=== PATIENT | male | born 1970 | race Caucasian/White ===

== ENCOUNTER 2022-12-21 17:37 | Emergency (ER) | payer OTHER, SELFPAY ==
[2022-12-21 17:51] VITALS: BP 127/91; PULSE 100; RESP 16; TEMP 36.5; O2SAT 96; BMI 43.2
[2022-12-21] MEDS: ONDANSETRON 4 MG/2 ML INJ IV (19:07)
[2022-12-21 19:16] LABS: Add Manual Diff / Slide Review NO; Basophils Absolute Auto 100 /uL (0-100); Basophils Percent Auto 0.5 % (0-2); Eosinophils Absolute Auto 300 /uL (0-450); Eosinophils Percent Auto 2.3 % (2-4); Hemoglobin 14.9 g/dL (13.5-17.5); Lymphocytes Absolute Auto 1800 /uL (1100-4500); Lymphocytes Percent Auto 16.6 % (25-40); Mean Corpuscular Hemoglobin 28.7 PG (26-34); Mean Corpuscular Volume 84.7 fL (80-100); Monocytes Absolute Auto 800 /uL (0-900); Monocytes Percent Auto 7.1 % (3-14); Neutrophils Absolute Auto 8100 /uL (1500-7000); Neutrophils Percent Auto 73.5 % (50-75); Platelet Count 343 X10^3/uL (150-400); Red Cell Distribution Width 14.1 % (11.6-14.8); White Blood Cell Count 11.1 X10^3/uL (4.5-11.0)
[2022-12-21 19:35] LABS: Ictotest Urine Negative (Negative)
[2022-12-21 19:35] LABS: Alanine Aminotransferase 54 IU/L (<50); Albumin 4.9 g/dL (3.5-5.0); Albumin Globulin Ratio 1.3 (1.0-2.8); Alkaline Phosphatase 88 U/L (38-126); Aspartate Aminotransferase 63 IU/L (17-59); BUN Creatinine Ratio 19.8 (6-22); Bilirubin Total 0.5 mg/dL (0.2-1.3); Blood Urea Nitrogen 20 mg/dL (9-20); Calcium 9.7 mg/dL (8.4-10.2); Carbon Dioxide 25 mmol/L (22-32); Chloride 105 mmol/L (98-107); Estimated Glomerular Filt Rate > 60 mL/min (>60); Globulin 3.7 g/dL (1.7-4.1); Glucose 97 mg/dL (70-100); HEMOLYSIS < 15 (0-50); Lipase 171 U/L (23-300); Potassium 4.4 mmol/L (3.4-5.1); Sodium 141 mmol/L (137-145); Total Protein 8.6 g/dL (6.3-8.2)
[2022-12-21 19:42] LABS: Bacteria Urine None Seen; RBC Urine 0-1/HPF (0-5/HPF); Squamous Epithelial Cell Urine None Seen (0-5/HPF); WBC Urine 0-1/HPF (0-5/HPF)
[2022-12-21] MEDS: METOCLOPRAMIDE 10 MG/2 ML INJ IV (21:02)
--- NOTE | 2022-12-21 21:14 | DI.RAD.S_ITS ---
PROCEDURE: XR ABDOMEN 1V INDICATIONS: abdominal pain TECHNIQUE: One view of the abdomen acquired. COMPARISON: None. FINDINGS: Surgical changes and devices: There are surgical clips in the right upper quadrant. Bowel: Bowel gas pattern demonstrates multiple scattered air-fluid levels throughout the abdomen without abnormal gaseous bowel distention. There is a paucity of gas in the colon. Soft tissues: No suspicious abdominal calcifications. Bones: No suspicious bony lesions. IMPRESSION: 1. Scattered air-fluid levels without abnormal gaseous bowel distention. The findings are nonspecific and the differential includes a gastroenteritis, ileus, or bowel obstruction. Dictated by: Naveen Boston M.D. on 12/21/2022 at 21:55 Approved by: Naveen Boston M.D. on 12/21/2022 at 21:57
--- NOTE | 2022-12-21 21:14 | ED_ITS ---
HPI - General Adult General Chief complaint: Abdominal Pain Stated complaint: abd. pain Time Seen by Provider: 12/21/22 20:55 Source: patient Mode of arrival: Ambulatory Limitations: no limitations History of Present Illness HPI narrative: Patient is a 52-year-old male here for evaluation of abdominal pain, diarrhea, distention and nausea. He states he has had symptoms like this in the past that have lasted for short period of time and then resolved. He denies any urinary symptoms. No fevers. Has had a colonoscopy recently where he stated that there was no specific abnormal findings. Also had an upper endoscopy we states there was some irritation of the distal esophagus and in his stomach. No fevers. No recent travel. He was recently on Ozempic for weight control. 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 Related Data Allergies Allergy/AdvReac Type Severity Reaction Status Date / Time No Known Drug Allergies Allergy Verified 12/21/22 19:07 Review of Systems Constitutional Constitutional: Reports system reviewed and no additional complaints, except as documented Cardiovascular Cardiovascular: Reports system reviewed and no additional complaints, except as documented Respiratory Respiratory: Reports system reviewed and no additional complaints, except as documented Gastrointestinal Gastrointestinal: Reports system reviewed and no additional complaints, except as documented Genitourinary Genitourinary: Reports system reviewed and no additional complaints, except as documented Integumentary/Breasts Skin/Breast: Reports system reviewed and no additional complaints, except as documented Exam Initial Vital Signs Initial Vital Signs: Vital Signs Temperature 97.7 F 12/21/22 17:51 Pulse Rate 100 H 12/21/22 17:51 Respiratory Rate 16 12/21/22 17:51 Blood Pressure 127/91 H 12/21/22 17:51 Pulse Oximetry 96 12/21/22 17:51 Oxygen Delivery Method Room Air 12/21/22 17:51 Const General: cooperative, comfortable and No ill appearing [facility] Head: normal to inspection and normocephalic Resp Effort & Inspection: normal respiratory effort Auscultation: clear to auscultation bilaterally Cardio Rate: regular rate GI Inspection: distended Palpation: firm, No guarding, No rigid and tender Skin General: no rashes or lesions noted Neuro General: patient alert, patient awake and moves all extremities Course Orders Ordered: ED Orders 12/21/22 19:07 Complete Blood Count AUTO DIFF Stat Comprehensive Metabolic Panel Stat Lipase Stat 12/21/22 19:10 Ictotest Urine Stat Urine Culture Stat Urine Microscopic Stat 12/21/22 21:14 XR abdomen 1V Stat 12/21/22 22:03 CT abdomen pelvis wo con Stat Discontinued Medications Metoclopramide HCl (Metoclopramide 10 Mg/2 Ml Inj) 10 mg IV NOW ONE Stop: 12/21/22 20:56 Last Admin: 12/21/22 21:02 Dose: 10 mg Documented By: RL Ondansetron HCl (Ondansetron 4 Mg Odt) 4 mg PO NOW PRN PRN Reason: Nausea And Vomiting Ondansetron HCl (Ondansetron 4 Mg/2 Ml Inj) 4 mg IV NOW PRN PRN Reason: Nausea And Vomiting Last Admin: 12/21/22 19:07 Dose: 4 mg Documented By: AMU Vital Signs Vital signs: Vital Signs - 8 hr 12/21/22 23:19 Pulse Rate 95 H Blood Pressure 133/83 Pulse Oximetry 96 Oxygen Delivery Method Room Air Medical Decision Making Lab Data Lab results reviewed: Yes I reviewed the patient's lab results. 12/21/22 19:07 12/21/22 19:07 Labs: Lab Results 12/21/22 12/21/22 12/21/22 Range/Units 19:07 19:07 19:10 WBC 11.1 H (4.5-11.0) X10^3/uL RBC 5.20 (4.5-5.9) X10^6/uL Hgb 14.9 (13.5-17.5) g/dL Hct 44.0 (41-53) % MCV 84.7 (80-100) fL MCH 28.7 (26-34) PG MCHC 34.0 (30-36) % RDW 14.1 (11.6-14.8) % Plt Count 343 (150-400) X10^3/uL Neut % (Auto) 73.5 (50-75) % Lymph % (Auto) 16.6 L (25-40) % [place] % (Auto) 7.1 (3-14) % Eos % (Auto) 2.3 (2-4) % Baso % (Auto) 0.5 (0-2) % Neut # (Auto) 8100 H (0040-6304) /uL Lymph # (Auto) 1800 (2699-5969) /uL [place] # (Auto) 800 (0-900) /uL Eos # (Auto) 300 (0-450) /uL Baso # (Auto) 100 (0-100) /uL Sodium 141 (137-145) mmol/L Potassium 4.4 (3.4-5.1) mmol/L Chloride 105 (98-107) mmol/L Carbon Dioxide 25 (22-32) mmol/L BUN 20 (9-20) mg/dL Creatinine 1.01 (0.66-1.25) mg/dL Estimated GFR > 60 (>60) mL/min BUN/Creatinine Ratio 19.8 (6-22) Glucose 97 (70-100) mg/dL Calcium 9.7 (8.4-10.2) mg/dL Total Bilirubin 0.5 (0.2-1.3) mg/dL AST 63 H (17-59) IU/L ALT 54 H (<50) IU/L Alkaline Phosphatase 88 (38-126) U/L Total Protein 8.6 H (6.3-8.2) g/dL Albumin 4.9 (3.5-5.0) g/dL Globulin 3.7 (1.7-4.1) g/dL Albumin/Globulin Ratio 1.3 (1.0-2.8) Lipase 171 (23-300) U/L Ur Bilirubin Confirm (Negative) Urine RBC 0-1/hpf (0-5/HPF) Urine WBC 0-1/hpf (0-5/HPF) Ur Squamous Epith Cells None seen (0-5/HPF) Urine Bacteria None seen (None) 12/21/22 Range/Units 19:10 WBC (4.5-11.0) X10^3/uL RBC (4.5-5.9) X10^6/uL Hgb (13.5-17.5) g/dL Hct (41-53) % MCV (80-100) fL MCH (26-34) PG MCHC (30-36) % RDW (11.6-14.8) % Plt Count (150-400) X10^3/uL Neut % (Auto) (50-75) % Lymph % (Auto) (25-40) % [place] % (Auto) (3-14) % Eos % (Auto) (2-4) % Baso % (Auto) (0-2) % Neut # (Auto) (8437-4198) /uL Lymph # (Auto) (2063-3255) /uL [place] # (Auto) (0-900) /uL Eos # (Auto) (0-450) /uL Baso # (Auto) (0-100) /uL Sodium (137-145) mmol/L Potassium (3.4-5.1) mmol/L Chloride (98-107) mmol/L Carbon Dioxide (22-32) mmol/L BUN (9-20) mg/dL Creatinine (0.66-1.25) mg/dL Estimated GFR (>60) mL/min BUN/Creatinine Ratio (6-22) Glucose (70-100) mg/dL Calcium (8.4-10.2) mg/dL Total Bilirubin (0.2-1.3) mg/dL AST (17-59) IU/L ALT (<50) IU/L Alkaline Phosphatase (38-126) U/L Total Protein (6.3-8.2) g/dL Albumin (3.5-5.0) g/dL Globulin (1.7-4.1) g/dL Albumin/Globulin Ratio (1.0-2.8) Lipase (23-300) U/L Ur Bilirubin Confirm Negative (Negative) Urine RBC (0-5/HPF) Urine WBC (0-5/HPF) Ur Squamous Epith Cells (0-5/HPF) Urine Bacteria (None) Urine Dip Bedside Urine Glucose Negative Bedside Urine Bilirubin + 1 Bedside Urine Ketone - Negative Urine Specific [place]row 1.030 Bedside Urine Occult Blood + Bedside Urine pH 5.5 Bedside Urine Protein - Negative Bedside Urine Urobilinogen - Negative Bedside Urine Nitrite - Negative Bedside Urine Leukocytes - Negative Esterase Point of care testing: Urine Dip Bedside Urine Glucose Negative Bedside Urine Bilirubin + 1 Bedside Urine Ketone - Negative Urine Specific Woodrow 1.030 Bedside Urine Occult Blood + Bedside Urine pH 5.5 Bedside Urine Protein - Negative Bedside Urine Urobilinogen - Negative Bedside Urine Nitrite - Negative Bedside Urine Leukocytes - Negative Esterase Imaging Data Abdominal x-ray: Radiologist's Impression: PROCEDURE:? XR ABDOMEN 1V ? INDICATIONS:? abdominal pain ? TECHNIQUE:? One view of the abdomen acquired.? ? COMPARISON:? None. ? FINDINGS:? ? Surgical changes and devices:? There are surgical clips in the right upper quadrant.? ? Bowel:? Bowel gas pattern demonstrates multiple scattered air-fluid levels throughout the abdomen without abnormal gaseous bowel distention.? There is a paucity of gas in the colon. ? Soft tissues:? No suspicious abdominal calcifications.? ? Bones:? No suspicious bony lesions.? ? IMPRESSION:? ? 1. Scattered air-fluid levels without abnormal gaseous bowel distention.? The findings are nonspecific and the differential includes a gastroenteritis, ileus, or bowel obstruction.? CT scan - abdomen/pelvis: Radiologist's Impression: PROCEDURE:? CT ABDOMEN PELVIS WO CON ? INDICATIONS:? Xray concerning for obstruction ? TECHNIQUE:? Axial sections were acquired from the lung bases to the pubic symphysis.? Coronal and sagittal reformats were performed.? For radiation dose reduction, the following was used: ?automated exposure control, adjustment of mA and/or kV according to patient size.? ? COMPARISON:? [facility], CR, XR ABDOMEN 1V, 12/21/2022, 21:22. ? FINDINGS:? Image quality:? Excellent.? ? Lung bases:? There is mild dependent atelectasis.? ? Heart:? Heart is normal in size. ? ? ABDOMEN: Liver:? Noncontrast evaluation of the liver demonstrates no discrete hepatic mass. Gallbladder:? Surgically absent.? Biliary ducts:? No biliary ductal dilatation.? ? Pancreas:? Unremarkable.? ? Spleen:? Normal in size.? ? Adrenal Glands:? No adrenal nodules.? ? Kidneys and Ureters:? No hydronephrosis.? ? ? Stomach and Bowel:? Stomach, small bowel loops, and colon are normal in caliber and wall thickness.? There are few scattered air-fluid levels within small and large bowel loops suggestive of a gastroenteritis.? No abnormal bowel distention to suggest obstruction.? There are surgical sutures along the cecum likely secondary to prior appendec mell.? Peritoneum:? No abnormal intraperitoneal fluid.? No free air.? ? Ventral Wall: ? No hernia.? Abdominal Nodes:? No retroperitoneal or mesenteric adenopathy by size criteria.? Vessels:? Aorta and inferior vena cava are normal in size.? ? PELVIS: Pelvic Organs:? Unremarkable.? ? Bladder:? Unremarkable.? ? Pelvic Nodes: No enlarged lymph nodes.? Miscellaneous: No inguinal hernias are seen. ? ? ? Bones:? Visualized osseous structures demonstrate no suspicious focal lesions. IMPRESSION:? ? 1. No evidence of bowel obstruction. ? 2. Scattered air-fluid levels within small and large bowel loops likely reflect a gastroenteritis.? MDM Narrative Medical decision making narrative: He did have a distended abdomen with diffuse tenderness. The x-ray showed air fluid levels with some concern about bowel obstruction. Resultant CT scan shows findings that are more consistent with a enteritis/colitis. This does fit with his picture today as he is also having diarrhea. No vomiting. No indication for antibiotics. No indication for surgical consultation. Will have him contact his primary doctor as he may need to get back in to see Gastroenterology. He was given return precautions. He expressed understanding and agreement. Discharge Plan Departure Patient Disposition: Home Clinical Impression: Gastroenteritis Instructions: Diarrhea Activity Restrictions/Additional Instructions: I do recommend that you eat a bland diet and advance it as tolerated. Contact your primary doctor for a follow-up. Return to the emergency department for new symptoms. Referrals: Chelsey Johnson MD [Primary Care Provider] - Stand Alone Forms: Patient Portal/API
--- NOTE | 2022-12-21 21:22 | PC.NURSE ---
pt ambulated with a steady gait to the restroom
--- NOTE | 2022-12-21 22:03 | DI.CT.S_ITS ---
PROCEDURE: CT ABDOMEN PELVIS WO CON INDICATIONS: Xray concerning for obstruction TECHNIQUE: Axial sections were acquired from the lung bases to the pubic symphysis. Coronal and sagittal reformats were performed. For radiation dose reduction, the following was used: automated exposure control, adjustment of mA and/or kV according to patient size. COMPARISON: [facility], , XR ABDOMEN 1V, 12/21/2022, 21:22. FINDINGS: Image quality: Excellent. Lung bases: There is mild dependent atelectasis. Heart: Heart is normal in size. ABDOMEN: Liver: Noncontrast evaluation of the liver demonstrates no discrete hepatic mass. Gallbladder: Surgically absent. Biliary ducts: No biliary ductal dilatation. Pancreas: Unremarkable. Spleen: Normal in size. Adrenal Glands: No adrenal nodules. Kidneys and Ureters: No hydronephrosis. Stomach and Bowel: Stomach, small bowel loops, and colon are normal in caliber and wall thickness. There are few scattered air-fluid levels within small and large bowel loops suggestive of a gastroenteritis. No abnormal bowel distention to suggest obstruction. There are surgical sutures along the cecum likely secondary to prior appendectomy. Peritoneum: No abnormal intraperitoneal fluid. No free air. Ventral Wall: No hernia. Abdominal Nodes: No retroperitoneal or mesenteric adenopathy by size criteria. Vessels: Aorta and inferior vena cava are normal in size. PELVIS: Pelvic Organs: Unremarkable. Bladder: Unremarkable. Pelvic Nodes: No enlarged lymph nodes. Miscellaneous: No inguinal hernias are seen. Bones: Visualized osseous structures demonstrate no suspicious focal lesions. IMPRESSION: 1. No evidence of bowel obstruction. 2. Scattered air-fluid levels within small and large bowel loops likely reflect a gastroenteritis. Dictated by: Naveen Boston M.D. on 12/21/2022 at 22:40 Approved by: Naveen Boston M.D. on 12/21/2022 at 22:58
[2022-12-21 23:19] VITALS: BP 133/83; PULSE 95; O2SAT 96
== END 2022-12-21 23:21 | disposition home or self-care (01) ==
PROVIDERS: Emergency Medicine; Emergency Provider Emergency Medicine; PCP Internal Medicine Endocrinology, Diabetes & Metabolism
DX: K52.9 Noninfective gastroenteritis and colitis, unspecified (principal)
CPT/HCPCS: 36415; 74018; 74176; 80053; 81003; 81015; 83690; 85025; 87086; 96374; 96375; 99284; J2405; J2765

== ENCOUNTER → 2024-04-13 09:05 | Outpatient (CLI) | payer OTHER, SELFPAY ==
[2024-04-13 10:27] LABS: Add Manual Diff / Slide Review NO; Basophils Absolute Auto 0 /uL (0-100); Basophils Percent Auto 0.5 % (0-2); Eosinophils Absolute Auto 100 /uL (0-450); Eosinophils Percent Auto 1.6 % (2-4); Hematocrit 42.9 % (41-53); Hemoglobin 14.4 g/dL (13.5-17.5); Lymphocytes Absolute Auto 1600 /uL (1100-4500); Lymphocytes Percent Auto 25.6 % (25-40); Mean Corpuscular HGB Conc 33.6 % (30-36); Mean Corpuscular Hemoglobin 29.2 PG (26-34); Mean Corpuscular Volume 86.8 fL (80-100); Monocytes Absolute Auto 600 /uL (0-900); Monocytes Percent Auto 9.7 % (3-14); Neutrophils Absolute Auto 4000 /uL (1500-7000); Neutrophils Percent Auto 62.6 % (50-75); Platelet Count 294 X10^3/uL (150-400); Red Blood Cell Count 4.94 X10^6/uL (4.5-5.9); Red Cell Distribution Width 14.2 % (11.6-14.8); White Blood Cell Count 6.3 X10^3/uL (4.5-11.0)
[2024-04-13 13:17] LABS: Alanine Aminotransferase 134 IU/L (<50); Albumin 4.6 g/dL (3.5-5.0); Albumin Globulin Ratio 1.8 (1.0-2.8); Alkaline Phosphatase 121 U/L (38-126); Aspartate Aminotransferase 60 IU/L (17-59); BUN Creatinine Ratio 22.8 (6-22); Bilirubin Total 0.5 mg/dL (0.2-1.3); Blood Urea Nitrogen 18 mg/dL (9-20); Calcium 9.4 mg/dL (8.4-10.2); Carbon Dioxide 21 mmol/L (22-32); Chloride 108 mmol/L (98-107); Cholesterol 320 mg/dL (140-199); Estimated Glomerular Filt Rate > 60 mL/min (>60); Globulin 2.5 g/dL (1.7-4.1); Glucose 109 mg/dL (70-100); HDL Cholesterol 40 mg/dL (40-60); HEMOLYSIS < 15 (0-50); Potassium 4.9 mmol/L (3.4-5.1); Sodium 140 mmol/L (137-145); Total Protein 7.1 g/dL (6.3-8.2); Triglycerides 421 mg/dL (35-150)
[2024-04-13 13:47] LABS: TSH w/ Reflex to FT4 1.63 uIU/mL (0.47-4.68)
[2024-04-13 13:53] LABS: Testosterone 149 ng/dL (71.8-623)
[2024-04-13 17:13] LABS: HIV 1 & 2 Ab/Ag 4th Gen Combo NEGATIVE (NEGATIVE)
[2024-04-13 19:49] LABS: Hep C Virus Ab w/Reflex Quant NEGATIVE s/c (NEGATIVE)
== END ==
PROVIDERS: PCP Family Medicine; Referring Provider Family Medicine; Visit Provider Family Medicine
DX: E66.01 Morbid (severe) obesity due to excess calories (principal); E03.9 Hypothyroidism, unspecified; E78.2 Mixed hyperlipidemia; R10.13 Epigastric pain; R53.82 Chronic fatigue, unspecified; E29.1 Testicular hypofunction
CPT/HCPCS: 36415; 80053; 80061; 83036; 84403; 84443; 85025; 86803; 87389

== ENCOUNTER → 2024-05-23 06:56 | Outpatient (CLI) | payer OTHER, SELFPAY ==
--- NOTE | 2024-05-23 06:57 | DI.US.S_ITS ---
PROCEDURE: US THYROID INDICATIONS: goiter TECHNIQUE: Real-time scanning was performed of the thyroid gland, with image documentation. COMPARISON: [facility], US, US THYROID, 08/15/2018, 14:36. FINDINGS: Thyroid: Right lobe measures 7.8 x 3.0 x 3.3 cm. Left lobe measures 6.3 x 2.9 x 2.6 cm. Isthmus is 0.3 cm thick. Echotexture is heterogeneous. Nodule number: 1 Location: Left mid inferior Size: 3.4 x 2.4 x 2.6 cm. Composition: Solid Echogenicity: Hypoechoic Shape: wider than tall. Margins: Smooth Echogenic foci: Punctate Total points: 7 ACR TI-RADS category: Highly suspicious Nodule number: 2 Location: Left superior Size: 1.5 x 0.9 x 1.6 cm. Composition: Solid Echogenicity: Hypoechoic Shape: wider than tall. Margins: Smooth Echogenic foci: None Total points: 4 ACR TI-RADS category: Moderately suspicious Nodule number: 3 Location: Right superior medial Size: 2.0 x 1.6 x 1.9 cm. Composition: Solid Echogenicity: Hyperechoic Shape: wider than tall. Margins: Smooth Echogenic foci: None Total points: 3 ACR TI-RADS category: Mildly suspicious Nodule number: 4 Location: Right mid Size: 2.7 x 2.1 x 2.7 cm. Composition: Solid Echogenicity: Isoechoic Shape: wider than tall. Margins: Irregular Echogenic foci: Macro calcifications Total points: 6 ACR TI-RADS category: Moderately suspicious IMPRESSION: Multiple thyroid nodules as described above. If not already accomplished, fine needle aspiration of nodules 1, 2, and 4 is recommended per consensus criteria. Recommend continued imaging surveillance of nodule 3 with follow-up ultrasound in 1 year. ACR TI-RADS definitions and recommendations: TI-RADS 1 (benign): 0 points. FNA not needed. TI-RADS 2 (not suspicious): 2 points. FNA not needed. TI-RADS 3 (mildly suspicious): 3 points. * FNA if 2.5 cm or larger, follow up if 1.5 cm or larger (at 1, 3, and 5 years). TI-RADS 4 (moderately suspicious): 4-6 points. * FNA if 1.5 cm or larger, follow up if 1 cm or larger (at 1, 2, 3, and 5 years). TI-RADS 5 (highly suspicious): 7 points or more. * FNA if 1 cm or larger, follow up if 0.5 cm or larger (every year for 5 years). Dictated by: Mitch Staley M.D. on 05/24/2024 at 12:57 Approved by: Mitch Staley M.D. on 05/24/2024 at 13:04
--- NOTE | 2024-05-23 06:57 | DI.ECHO.S_ITS ---
[facility]+ [facility] : : [address] : : [place] : : [id number] : : Phone: [phone] Echocardiogram Report + + :Name: SHEBA ANDUJAR Study Date: 05/23/2024 Height: 65 in : :Hospital ReadingLocation: Weight: 290 lb : : Gender: Male BSA: 2.3 m2 : :: 1970 Age: 54 yrs BP: 163/95 mmHg: :Reason For Study: HYPERTENSION, FATIGUE, HYPOTHYROIDISM : :Ordering Physician: GÉNESIS, : :ANNETTE Performed By: Arash Walters : :Referring: ANNETTE CAPPS : + + Interpretation Summary 1) Normal left ventricular thickness, size, wall motion, and systolic function (EF 60-65%). 2) Mildly enlarged right ventricle with normal function. 3) No significant valvular abnormalities. 4) No prior Echo available for comparison. Procedure: A two-dimensional transthoracic echocardiogram with color flow and Doppler was performed. The study quality was technically adequate. There is no prior echocardiogram noted for this patient. The patient was in sinus rhythm with heart rates between 64-74 bpm during the exam. Left Ventricle: The left ventricle is normal in size. Left ventricular wall thickness is normal. The ejection fraction is estimated to be 60-65%. Left ventricular systolic function appears normal without focal wall motion abnormalities. Diastolic parameters suggest a relaxation abnormality of the left ventricle, consistent with probable normal filling pressures. Right Ventricle: The right ventricle is mildly dilated. The right ventricular systolic function is normal. Atria: The left atrium is moderately dilated. The right atrium is mildly dilated. The interatrial septum grossly appears intact with no obvious evidence for an atrial septal defect. Mitral Valve: The mitral valve is normal. There is no mitral valve stenosis. There is trace mitral regurgitation. Aortic Valve: The aortic valve is grossly normal. The aortic valve opens well. There is no aortic valve stenosis. No aortic regurgitation is present. Tricuspid Valve: The tricuspid valve is normal. There is no tricuspid stenosis. There is trace tricuspid regurgitation. Pulmonic Valve: The pulmonic valve is not well visualized. There is no pulmonic valvular stenosis. There is a trace or physiologic amount of pulmonic regurgitation. Great Vessels: The aortic root is normal size. The ascending aorta is at the upper limits of normal in size. The inferior vena cava was not visualized. Pericardium/ Pleura There is no pericardial effusion. There is no pleural effusion. MMode/2D Measurements & Calculations LVIDd: 5.2 cm LVOT diam: 2.3 cm LVIDs: 3.3 cm Ao root diam: 3.5 cm FS: 36.5 % asc Aorta Diam: 3.7 cm IVSd: 1.0 cm LVPWd: 1.0 cm LV villarreal. diameter/BSA (cm/m^2): 2.3 LV sys. diameter/BSA (cm/m^2): 1.4 LA A2 area: 27.9 cm2 RA long axis: 4.6 cm LA A4 area: 25.6 cm2 RA area: 20.1 cm2 LA length (vol): 6.3 cm RA vol: 75.5 ml LA vol: 96.4 ml RA : 32.6 ml/m2 LA vol index: 41.6 ml/m2 RVD1 (basal): 4.2 cm RVD2 (mid): 3.8 cm TAPSE: 2.8 cm Doppler Measurements & Calculations Ao V2 max: 153.7 cm/sec LVOT Max Tom: 120.4 cm/sec Ao V2 mean: 111.3 cm/sec LV V1 max P.8 mmHg Ao max P.4 mmHg LV V1 VTI: 27.6 cm Ao mean P.5 mmHg CHUCKY(I,D): 3.6 cm2 Ao V2 VTI: 33.0 cm CHUCKY(V,D): 3.4 cm2 sev ratio: 0.83 CHUCKY indexed to BSA (cm^2/m^2): 1.6 MV E max tom: 93.7 cm/sec TR max tom: 225.4 cm/sec MV A max tom: 81.0 cm/sec TR max P.3 mmHg MV E/A: 1.2 PA V2 max: 130.8 cm/sec Med Peak E' Tom: 7.4 cm/sec PA V2 mean: 83.7 cm/sec E/E' med: 12.6 PA mean P.2 mmHg Lat Peak E' Tom: 7.9 cm/sec PA pr(Accel): 15.6 mmHg E/E' lat: 11.8 E/e' average: 12.2 MV dec time: 0.20 sec SV(LVOT): 118.8 ml Reading Physician:09:45 AM
== END ==
LOC: ECHO 06:56
PROVIDERS: PCP Family Medicine; Referring Provider Family Medicine; Visit Provider Family Medicine
DX: E04.2 Nontoxic multinodular goiter (principal); E03.9 Hypothyroidism, unspecified; I10 Essential (primary) hypertension; E66.01 Morbid (severe) obesity due to excess calories; R53.82 Chronic fatigue, unspecified
CPT/HCPCS: 76536; 93306

== ENCOUNTER → 2024-10-26 10:49 | Outpatient (CLI) | payer OTHER, SELFPAY ==
[2024-10-26 11:25] LABS: Hemoglobin A1C% w Est Avg Glu 5.6 % (4.0-6.0)
[2024-10-26 11:28] LABS: Alanine Aminotransferase 40 IU/L (<50); Albumin Globulin Ratio 1.9 (1.0-2.8); Alkaline Phosphatase 87 U/L (38-126); Aspartate Aminotransferase 36 IU/L (17-59); BUN Creatinine Ratio 18.2 (6-22); Bilirubin Total 0.5 mg/dL (0.2-1.3); Blood Urea Nitrogen 16 mg/dL (9-20); Calcium 9.7 mg/dL (8.4-10.2); Carbon Dioxide 22 mmol/L (22-32); Chloride 107 mmol/L (98-107); Estimated Glomerular Filt Rate > 60 mL/min (>60); Globulin 2.7 g/dL (1.7-4.1); Glucose 100 mg/dL (70-100); HEMOLYSIS < 15 (0-50); Iron 76 ug/dL (49-181); Potassium 4.5 mmol/L (3.4-5.1); Sodium 140 mmol/L (137-145); Total Protein 7.7 g/dL (6.3-8.2)
[2024-10-26 11:37] LABS: Percent Iron Saturation 24 % (20-50); Total Iron Binding Capacity 316 ug/dL (261-462); Transferrin 306 mg/dL (206-381)
[2024-10-26 12:53] LABS: Appearance Urine UA CLEAR; Bilirubin Urine UA NEGATIVE (NEGATIVE); Color Urine UA YELLOW; Glucose Urine UA NEGATIVE (Negative); Ketones Urine UA NEGATIVE (NEGATIVE); Leukocyte Esterase Urine UA NEGATIVE (NEGATIVE); Nitrite Urine UA NEGATIVE (Negative); Occult Blood Urine UA 1+ (Negative); Protein Urine UA NEGATIVE (Negative); Specific Gravity Urine UA 1.025 (1.000-1.035); Urobilinogen Urine UA 0.2 E.U./dL (0.2)
[2024-10-26 13:09] LABS: Bacteria Urine None Seen; Culture Indicated Urine Cult Not Indicated; RBC Urine 0-1/HPF (0-5/HPF); Squamous Epithelial Cell Urine None Seen (0-5/HPF); Urine Volume 10mL (spun); WBC Urine 0-1/HPF (0-5/HPF)
[2024-10-27 06:36] LABS: Ceruloplasmin 25.1 mg/dL (16.0-31.0)
== END ==
PROVIDERS: PCP Family Medicine; Referring Provider Family Medicine; Visit Provider Family Medicine
DX: E66.01 Morbid (severe) obesity due to excess calories (principal); R79.89 Other specified abnormal findings of blood chemistry; R10.12 Left upper quadrant pain; E03.9 Hypothyroidism, unspecified; E78.2 Mixed hyperlipidemia; R73.01 Impaired fasting glucose
CPT/HCPCS: 36415; 80053; 81001; 82390; 83036; 83540; 83550

== ENCOUNTER → 2025-04-27 09:27 | Outpatient (CLI) | payer OTHER, SELFPAY ==
[2025-04-27 10:18] LABS: Hemoglobin A1C% w Est Avg Glu 6.0 % (4.0-6.0)
[2025-04-27 10:27] LABS: Alanine Aminotransferase 32 IU/L (<50); Albumin 4.7 g/dL (3.5-5.0); Albumin Globulin Ratio 1.9 (1.0-2.8); Alkaline Phosphatase 86 U/L (38-126); Blood Urea Nitrogen 18 mg/dL (9-20); Calcium 9.7 mg/dL (8.4-10.2); Carbon Dioxide 27 mmol/L (22-32); Chloride 105 mmol/L (98-107); Cholesterol 151 mg/dL (140-199); Estimated Glomerular Filt Rate > 60 mL/min (>60); Globulin 2.5 g/dL (1.7-4.1); Glucose 105 mg/dL (70-99); HDL Cholesterol 33 mg/dL (40-60); HEMOLYSIS < 15 (0-50); Potassium 5.2 mmol/L (3.4-5.1); Sodium 141 mmol/L (137-145); Total Protein 7.2 g/dL (6.3-8.2); Triglycerides 244 mg/dL (35-150)
[2025-04-27 10:42] LABS: Vitamin D 25 Hydroxy (D3) 44.9 ng/mL (30.0-100.0)
[2025-04-27 11:02] LABS: TSH w/ Reflex to FT4 1.67 uIU/mL (0.47-4.68)
== END ==
PROVIDERS: PCP Family Medicine; Referring Provider Family Medicine; Visit Provider Family Medicine
DX: E03.9 Hypothyroidism, unspecified (principal); E66.01 Morbid (severe) obesity due to excess calories; E78.2 Mixed hyperlipidemia; E55.9 Vitamin D deficiency, unspecified; Z12.5 Encounter for screening for malignant neoplasm of prostate; E03.8 Other specified hypothyroidism; R73.01 Impaired fasting glucose
CPT/HCPCS: 36415; 80053; 80061; 82306; 83036; 84443; G0103